=== PATIENT | female | born 1985 | race Caucasian/White ===

== ENCOUNTER 2025-06-07 12:49 | Outpatient (CLI) | payer OTHER, SELFPAY ==
--- NOTE | ~2025-06-07 | MR_ITS ---
EXAMINATION: MR thoracic spine wo con DATE: 06/07/2025 13:40 INDICATION: Thoracic spine pain TECHNIQUE: Magnetic resonance imaging (MRI) of the thoracic spine was performed without intravenous contrast. Sagittal localizer T1-weighted FSE of the cervicothoracic spine was obtained. Thoracic spine sequences included sagittal T2-weighted FSE, sagittal T1-weighted SE, Sagittal T2-weighted FS FSE, and axial T2-weighted FSE. COMPARISON: None FINDINGS: Alignment is normal.Vertebral body heights are normal. Normal marrow signal. Mild disc height loss at T8-T9 with right paracentral annular fissure and disc extrusion with disc material extending 6 mm cephalad to the level of the inferior endplate of T8. The extrusion measures up to 7 mm left to right and 4-5 and lumbar AP. This results in mild central canal stenosis and indents the right ventral surface of the cord. Additional small left subarticular zone disc protrusion at T2-T3 and T9-T10 with only minimal central canal stenosis. Mild disc bulge at T11-T12 also with only minimal central canal stenosis. There is normal spinal cord signal. The conus terminates at L1. There is multilevel mild to moderate thoracic facet osteoarthritis. There is minimal to mild neural foraminal stenosis at a few levels in the left right sides of the thoracic spine most prominent at T9-T10 were results primarily from the previously noted disc protrusion. IMPRESSION: 1. Mild thoracic spondylosis. Reviewed, dictated and finalized at location A. [facility] LASTER
--- NOTE | ~2025-06-07 | MR_ITS ---
EXAMINATION: MR cervical spine wo con DATE: 06/07/2025 13:40 INDICATION: Cervical radiculopathy. TECHNIQUE: Magnetic resonance imaging (MRI) of the cervical spine was performed without intravenous contrast. COMPARISON: None FINDINGS: There is mild kyphosis of cervical spine. Vertebral body heights are normal. There is mildly decreased disc height at C6-C7. The spinal cord signal intensity is normal. The following disc levels are specifically discussed: C2-C3: The disc does not extend beyond the endplate margin. There is mild bilateral uncovertebral joint osteoarthritis. There is mild bilateral facet joint osteoarthritis. There is no neural foraminal stenosis. There is no central canal stenosis. C3-C4: The disc does not extend beyond the endplate margin. There is mild bilateral uncovertebral joint osteoarthritis. There is mild bilateral facet joint osteoarthritis. There is no neural foraminal stenosis. There is no central canal stenosis. C4-C5: The disc is bulging. There is mild bilateral uncovertebral joint osteoarthritis. There is severe bilateral facet joint osteoarthritis. There is mild bilateral neural foraminal stenosis. There is mild central canal stenosis. C5-C6: The disc is bulging. There is mild bilateral uncovertebral joint osteoarthritis. There is no facet joint osteoarthritis. There is mild right neural foraminal stenosis. There is mild central canal stenosis. C6-C7: There is a central extrusion. There is mild bilateral uncovertebral joint osteoarthritis. There is no facet joint osteoarthritis. There is no neural foraminal stenosis. There is mild central canal stenosis. C7-T1: The disc does not extend beyond the endplate margin. There is no uncovertebral joint osteoarthritis. There is mild bilateral facet joint osteoarthritis. There is no neural foraminal stenosis. There is no central canal stenosis. IMPRESSION: 1. Mild cervical spondylosis. Reviewed, dictated and finalized at location E. [facility] [employer]
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
--- OUTSIDE RECORDS SUMMARY | 2025-06-07 12:58 | XMS_ITS | Encounter Summary ---
Author Organization [facility] Address [address] [place] [address] Care Team Providers Care Job Cost Estimator Name Role Phone Jacob Rosales MD Primary Care Provider [phone] Encounter Details Date Type Department Care Team (Late st Contact Info) Description 02/25/2023 Graematter Message Enc [facility] Family & Internal Medicine [address] [address] [facility] Provider Schedule appt with Dr Rosales Social History Tobacco Use Types Packs/Day Years Used Date Smoking Tobacco: Former Cigarettes 2020 Smokeless Tobacco: Never Alcohol Use Standard Drinks/Week Comments No 0 (1 standard drink = 0.6 oz pur e alcohol) AUDIT-C Answer Date Recorded Frequency of Alcohol Consumption Never 09/30/2018 Average Number of Drinks Not on file 019 Frequency of Binge Drinking Not on file 09/14 PHQ-2 Answer Date Recorded PHQ-2 Score - If the patient scores above 3, please move on to questions 3-9 2 03/26/2022 Comments No Sex and Gender Information Value Date Recorded Sex Assigned at Female 06/02/2023 3:16 PM SENIOR VALIDATION ENGINEER Legal Sex Female 8:02 PM CDT Gender Identity Female 06/02/2023 3:16 PM SENIOR VALIDATION ENGINEER Sexual Orientation Straight 06/02/2023 3: 16 PM SENIOR VALIDATION ENGINEER documented as of this encounter Functional Status * RETIRED Are you deaf or do you have serious difficulty hearing Answer Date of Assessment Author Status No 08/29/2021 5:26 PM CDT Activ e * RETIRED Are you blind or do you have serious difficulty seeing, even when wearing glasses? Answer Date of Assessment Author Status No 08/29/2021 5:26 PM CDT Activ e * Do you have serious difficulty walking or climbing stairs? Answer Date of Assessment Author Status No 08/29/2021 5:26 PM GREGORT Veronika Salgado RN Active * Do you have difficulty dressing or bathing? Answer Date of Assessment Author Status No 08/29/2021 5:26 PM Veronika Cortes RN Active * Because of a physical, mental, or emotional condition, do you have difficulty doing errands alone such as visiting a doctor's office or shopping? Answer Date of Assessment Author Status No 08/29/2021 5:26 PM Veronika Cortes RN Active documented as of this encounter Mental Status * Because of a physical, mental, or emotional condition, do you have serious difficulty concentrating, remembering, or making decisions? Answer Entry Date Author Status No 08/29/2021 5:26 PM Veronika Cortes RN Active documented in this encounter Plan of Treatment Upcoming Encounters Date Type Department Care Team (Late st Contact Info) Description 07/07/2025 2:20 PM SENIOR VALIDATION ENGINEER Office Visit [facility] Family & Internal Medicine [facility] [address] [place] [address] Jacob Rosales MD [address] [place] [address] documented as of this encounter Goals Goal Patient Goal Type Associated Problems Recent Progress Patient-Stated? Author Health - patient able to perform ADLs independently General Kelechi Marmolejo RN documented as of this encounter Visit Diagnoses Not on filedocumented in this encounter Care Teams Job Cost Estimator Relationship Specialty Start Date End [place] [id number] [place] [address] PCP - General FAMILY PRACTICE 11/15/21 documented as of this encounter
--- OUTSIDE RECORDS SUMMARY | 2025-06-07 12:58 | XMS_ITS | Encounter Summary ---
Author Organization [facility] Address [facility] [place] [address] Care Team Providers Care Physician Relations Specialist Name Role Phone Jacob Rosales MD Primary Care Provider [phone] Encounter Details Date Type Department Care Team (Late st Contact Info) Description 07/24/2023 MyChart Message Enc [facility] Family & Internal Medicine [facility] [address] [place] [address] Jacob Rosales MD [address] [place] [address] Loss of bladder control Social History Tobacco Use Types Packs/Day Years Used Date Smoking Tobacco: Former Cigarettes 2020 Smokeless Tobacco: Never Alcohol Use Standard Drinks/Week Comments No 0 (1 standard drink = 0.6 oz pur e alcohol) AUDIT-C Answer Date Recorded Frequency of Alcohol Consumption Never 09/30/2018 Average Number of Drinks Not on file 019 Frequency of Binge Drinking Not on file 09/14 PHQ-2 Answer Date Recorded Patient Health Questionnaire-2 Score 4 03/13/2023 Comments No Sex and Gender Information Value Date Recorded Sex Assigned at Female 06/02/2023 3:16 PM SUPERINTENDENT [employer] Legal Sex Female 8:02 PM CDT Gender Identity Female 06/02/2023 3:16 PM SUPERINTENDENT [employer] Sexual Orientation Straight 06/02/2023 3: 16 PM SUPERINTENDENT [employer] documented as of this encounter Functional Status [...] Author Status No 08/29/2021 5:26 PM CDT Veronika Salgado RN Active * Do you have difficulty dressing or bathing? Answer Date of Assessment Author Status No 08/29/2021 5:26 PM CDT Veronika Salgado RN Active * Because of a physical, mental, or emotional condition, do you have difficulty doing errands alone such as visiting a doctor's office or shopping? Answer Date of Assessment Author Status No 08/29/2021 5:26 PM CDT Veronika Salgado RN Active documented as of this encounter Mental Status * Because of a physical, mental, or emotional condition, do you have serious difficulty concentrating, remembering, or making decisions? Answer Entry Date Author Status No 08/29/2021 5:26 PM CDT Veronika Salgado RN Active documented in this encounter Plan of Treatment Upcoming Encounters Date Type Department Care Team (Late st Contact Info) Description 07/07/2025 2:20 PM SUPERINTENDENT [employer] COMM[employer] Office Visit [facility] Family & Internal Medicine [address] [address] Jacob Rosales MD [address] [place] [address] documented as of this encounter Goals Goal Patient Goal Type Associated Problems Recent Progress Patient-Stated? Author Health - patient able to perform ADLs independently General Kelechi Marmolejo RN documented as of this encounter Visit Diagnoses Not on filedocumented in this encounter Additional Health Concerns Assessment Noted Time PHQ-9 Depression Total Score: 9 03/13/20 23 1:02 PM CDT documented as of this encounter Care Teams Physician Relations Specialist Relationship Specialty [place] [address] [place] [address] PCP - General FAMILY PRACTICE 11/15/21 documented as of this encounter
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
--- OUTSIDE RECORDS SUMMARY | 2025-06-07 12:58 | XMS_ITS | Encounter Summary ---
Author Organization [facility] Address [address] [place] [address] Care Team Providers Care Child Care Associate Name Role Phone Jacob Rosales MD Primary Care Provider [phone] Encounter Details Date Type Department Care Team (Late st Contact Info) Description 06/04/2022 [facility] Patient Accounts [address] [place], [place] [id number] [facility] Provider Monthly Credit Card Payment Social History Tobacco Use Types Packs/Day Years [...] Sex Assigned at Female 06/02/2023 3:16 PM THERMODYNAMICS PROFESSOR Legal Sex Female 8:02 PM CDT Gender Identity Female 06/02/2023 3:16 PM THERMODYNAMICS PROFESSOR Sexual Orientation Straight 06/02/2023 3: 16 PM THERMODYNAMICS PROFESSOR documented as of this encounter Functional Status [...] 5:26 PM Veronika Cortes RN Active * Do you have difficulty [...] st Contact Info) Description 07/07/2025 2:20 PM THERMODYNAMICS PROFESSOR Office Visit [facility] Medical Group Family & Internal Medicine [facility] [address] [place] [address] Jacob Rosales MD [address] [place] [address] documented as of this encounter Goals Goal Patient Goal Type Associated Problems Recent Progress Patient-Stated? Author Health - patient able to perform ADLs independently General No Kelechi Azul RN documented as of this encounter Visit Diagnoses Not on filedocumented in this encounter Care Teams Child Care Associate Relationship Specialty [place] [address] [place] [address] PCP - General FAMILY PRACTICE 11/15/21 documented as of this encounter
--- OUTSIDE RECORDS SUMMARY | 2025-06-07 12:58 | XMS_ITS | Encounter Summary ---
Author Organization [facility] Address [address] [place] [address] Care Team Providers Care Gluer Machine Setup Operator Name Role Phone Jacob Rosales MD Primary Care Provider [phone] Encounter Details Date Type Department Care Team (Late st Contact Info) Description 06/03/2023 [place] Message [employer]NAGEMENT [address] [place] [address] [facility] Provider Proof of Name Change Social History Tobacco Use Types Packs/Day Years [...] Sex Assigned at Female 06/02/2023 3:16 PM LOOP MACHINE OPERATOR Legal Sex Female 8:02 PM CDT Gender Identity Female 06/02/2023 3:16 PM LOOP MACHINE OPERATOR Sexual Orientation Straight 06/02/2023 3: 16 PM LOOP MACHINE OPERATOR documented as of this encounter Functional Status [...] st Contact Info) Description 07/07/2025 2:20 PM LOOP MACHINE OPERATOR Office Visit [facility] Medical Group Family & Internal Medicine [facility] [address] [place] [address] Jacob Rosales MD [address] [address] documented as of this encounter Goals Goal [...] documented as of this encounter Care Teams Gluer Machine Setup Operator Relationship Specialty [place] [address] [place] [address] PCP - General FAMILY PRACTICE 11/15/21 documented as of this encounter
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
== END 2025-06-07 12:50 | disposition home or self-care (01) ==
PROVIDERS: PCP Family Medicine Sports Medicine; Visit Provider Nurse Practitioner Adult Health
DX: M47.814 Spondylosis without myelopathy or radiculopathy, thoracic region (principal); M47.812 Spondylosis without myelopathy or radiculopathy, cervical region
CPT/HCPCS: 72141; 72146